=== PATIENT | female | born 1970 | race Caucasian/White ===

== ENCOUNTER → 2019-04-01 | Outpatient (CLI) | payer OTHER, SELFPAY ==
--- NOTE | 2019-04-01 15:45 | EMB_PTH ---
PATIENT: TRACI JAIN LOC: [facility] U#:[id number] AGE/SX: 48/F ROOM: RE04/01/[address]: Dr. Radha Osborne MD : [id number] BED: DIS: 04/01/2019 SPEC #: [id number] RECD: 04/01/19 17:29 STATUS: SAMREEN AMANDA #: [id number] AMINA: 04/01/19 15:[address]: Radha Germain DEPT: SURGICAL PATHOLOGY RECD BY: Estrada Fishman Tissues: Endometrium, NOS Procedures: Surgery Specimen Level IV HEADER OPERATION: Endometrial biopsy PRE-OP DIAGNOSIS: Abnormal uterine bleeding TISSUE SUBMITTED: Endometrial biopsy MICROSCOPIC DIAGNOSIS Endometrial biopsy: Strips of benign endometrial epithelium, superficial fragments of benign endometrial tissue and blood clots. Negative for hyperplasia. SJ:jannette 04/03/19 COMMENT Clinical correlation and appropriate follow up are necessary. MICROSCOPIC DESCRIPTION Slides are reviewed. GROSS DESCRIPTION Received is one container labeled with the patient's name and not further designated. The specimen consists of multiple fragments of hemorrhagic soft tissue that in aggregate measure 2.5 x 1.5 x 0.2 cm. The specimen is totally submitted in one cassette. / SJ:rg 04/02/19 TC:5 CPT: 33922
== END | disposition home or self-care (01) ==
LOC: LABSPEC 04-02 07:47
PROVIDERS: Referring Provider Obstetrics & Gynecology; Visit Provider Obstetrics & Gynecology
DX: N93.9 Abnormal uterine and vaginal bleeding, unspecified (principal)
CPT/HCPCS: 88305